=== PATIENT | female | born 2000 | race Caucasian/White ===

== ENCOUNTER 2024-07-31 20:17 | Emergency (ER) | payer BC ==
[2024-07-31] MEDS ORDERED: ONDANSETRON HCl 4 MG/2 ML SDV IV ONE (20:45)
[2024-07-31] MEDS ORDERED: FAMOTIDINE 10MG/ML 2ML SDV IV ONE (20:45)
[2024-07-31] MEDS ORDERED: SODIUM CHLORIDE 0.9% 1,000 ML IV ONE (20:45)
[2024-07-31] MEDS ORDERED: DICYCLOMINE HCL 20 MG/2 ML VIAL IM ONE (20:45)
[2024-07-31 21:02] VITALS: BP 133/96
[2024-07-31] MEDS ORDERED: PHENAZOPYRIDINE HCL 100 MG/TAB PO ONE (21:05)
[2024-07-31] MEDS ORDERED: KETOROLAC TROMETHAMINE 30 MG/ML SDV IV ONE (21:05)
[2024-07-31 21:08] LABS: URINE BLOOD DIPSTICK Trace-intact (NEGATIVE); URINE CLARITY Slightly Cloudy; URINE GLUCOSE - DIPSTICK Negative (NEGATIVE); URINE KETONE 15 mg/dL (NEGATIVE); URINE LEUK ESTERASE Trace (Negative); URINE PH 5.5 (4.5-8.0); URINE PROTEIN - DIPSTICK 30 mg/dL (NEG-TRACE); URINE SPECIFIC GRAVITY >=1.030
[2024-07-31 21:08] LABS: BASO% 0.2 % (0-3); EOS% 1.4 % (0-8); HEMATOCRIT 40.1 % (37.0-47.0); HEMOGLOBIN 13.6 g/dl (12.0-16.0); IMMATURE GRANULOCYTES 0.1 % (0.0-5.0); MEAN CELL VOLUME 90.7 fL CALC (80.0-100.0); MEAN CORPUSCULAR HGB 30.8 pG CALC (26.0-32.0); MEAN CORPUSCULAR HGB CONC 33.9 g/dL CAL (32.0-36.0); MONO% 8.4 % (2-13); NEUT# 5.79 thou/uL (2.00-7.15); NEUT% 63.9 % (42-76); RED BLOOD COUNT 4.42 mill/uL (4.20-5.60); RED CELL DISTRI WIDTH 11.9 % (11.5-15.5)
[2024-07-31 21:10] LABS: URINE COLOR Yellow; URINE NITRITE - DIPSTICK Positive (Negative)
[2024-07-31 21:14] LABS: URINE RBC 0-2 RBC/hpf (0-5); URINE SQUAMOUS EPITHELIAL CELL MANY EPI/hpf (0-FEW)
[2024-07-31 21:17] LABS: ALBUMIN 4.1 g/dL (3.2-5.0); BILIRUBIN, TOTAL 0.4 mg/dL (0.02-1.3); CREATININE 0.6 mg/dL (0.5-1.0); POTASSIUM 3.7 mmol/l (3.5-5.1); TOTAL PROTEIN 7.1 g/dL (6.3-8.2)
[2024-07-31 21:30] VITALS: BP 130/88
[2024-07-31 22:00] VITALS: BP 133/78
[2024-07-31 22:30] VITALS: BP 138/90
[2024-07-31 23:00] VITALS: BP 142/86
[2024-07-31 23:30] VITALS: BP 139/87
[2024-08-01] VITALS: BP 137/92
[2024-08-01] MEDS ORDERED: BACTRIM DS1 TAB PO
[2024-08-01 00:19] VITALS: BP 137/92
== END 2024-08-01 00:36 | disposition home or self-care (01) | DRG 760 ==
LOC: ED 20:17
PROVIDERS: Emergency Medicine
DX: N83.202 Unspecified ovarian cyst, left side (principal); N39.0 Urinary tract infection, site not specified; B95.61 Methicillin susceptible Staphylococcus aureus infection as the cause of diseases classified elsewhere